=== PATIENT | male | born 1935 | race Caucasian/White ===

== ENCOUNTER → 2018-06-23 | Outpatient (CLI) | payer OTHER ==
[~2018-06-23] VITALS: Ht 172.7 cm; Wt 74.8 kg
[~2018-06-23] MED LIST: ALEVE220 MG PO; ASPIR 8181 MG PO; BLEPH-105 ML OPHTHALMIC; LIPITOR 20 MG T20 M1 PO; LISINOPRIL10 MG PO; NIACIN50 MG; NORCO 5-325 TA1 EACH PO; NORVASC5 MG PO; TOPROL XL25 MG PO; XARELTO20 MG PO
[2018-06-23 07:31] VITALS: BP 135/70
[2018-06-23 07:57] LABS: HEMATOCRIT 35.1 % (42.0-52.0); HEMOGLOBIN 12.2 gm/dL (14.0-18.0); MCH 32.5 pg (26.0-34.0); MCHC 34.6 g/dL (28.0-37.0); RBC 3.74 mil/uL (4.50-6.00); RDW 14.4 % (10.5-14.5); WBC 5.5 thou/uL (4.0-11.0)
[2018-06-23 08:11] LABS: CALCIUM 8.5 mg/dL (8.5-10.1); POTASSIUM 4.8 mmol/L (3.5-5.1)
[2018-06-23 08:13] LABS: APTT 34.2 Seconds (24.5-32.8); INR 1.2; PROTIME 12.3 Seconds (9.3-11.4)
[2018-06-23 08:17] LABS: ALBUMIN 3.4 g/dL (3.4-5.0); TOTAL BILIRUBIN 0.5 mg/dL (<0.1-1.0); TOTAL PROTEIN 6.4 g/dL (6.4-8.2)
--- NOTE | 2018-06-23 11:31 | EKG ---
[address] [place] [address] ELECTROCARDIOGRAM REPORT Name: LORNA TREJO Room #: REG [facility]#: [id number] ������������������ Admission: 06/23/18 ������������������ Attend Phys: Derrick Don MD Discharge: ������������������ Date of : 31 Report #: [id number] ����������������������������������������������������������������� [id number] THIS REPORT FOR: //name// [facility] Test Date: 2018-06-23 Test Time: 09:27:33 Pat Name: LORNA TREJO Department: Room: Gender: Blow Torch Operator: Gildardo GOODWIN : 1935 Requested By: Derrick Don Order Number: [id number] MD: Genaro Teixeira Measurements Intervals [place] Rate: 45 P: 48 MD: 166 QRS: -37 QRSD: 98 T: 172 QT: 466 QTc: 404 Interpretive Statements Sinus bradycardia Atrial premature complex Left axis deviation Low voltage limb leads Nonspecific ST/T waveabnormalities Compared to ECG 05/11/2004 12:16:39 Atrial premature complex(es) now present Electronically Signed On 06-23-2018 11:31:42 NON DESTRUCTIVE EVALUATION SPECIALIST by Genaro Teixeira [email or web address] ��������������������������������������������� <ELECTRONICALLY SIGNED> ���������������������������������������� By: Genaro Teixeira MD ��������������������������������������������� 06/23/18 1131 0927 0927 Genaro Teixeira MD /EPI
== END | disposition home or self-care (01) ==
LOC: CATH 06:47
PROVIDERS: Internal Medicine Cardiovascular Disease
DX: I48.91 Unspecified atrial fibrillation (principal); I10 Essential (primary) hypertension; E78.00 Pure hypercholesterolemia, unspecified; M19.90 Unspecified osteoarthritis, unspecified site; K21.9 Gastro-esophageal reflux disease without esophagitis; E78.5 Hyperlipidemia, unspecified; Z95.1 Presence of aortocoronary bypass graft; Z87.891 Personal history of nicotine dependence; Z98.890 Other specified postprocedural states; Z79.899 Other long term (current) drug therapy; Z79.82 Long term (current) use of aspirin

== ENCOUNTER 2018-12-14 09:41 | Observation (INO) | payer OTHER ==
[~2018-12-14] VITALS: Ht 172.7 cm; Wt 73.5 kg
--- NOTE | ~2018-12-14 | P ---
[facility] [address] PROCEDURE REPORT Name: LORNA TREJO Room #: [facility] M..#: [id number] Admission: 12/14/18 Attend Phys: Derrick Don MD Discharge: Date of : 31 Report #: [id number] THIS REPORT FOR: //name// CC: Derrick Lamb DATE OF SERVICE: 12/14/2018 PROCEDURE: Pacemaker implantation. PREOPERATIVE DIAGNOSIS: Sick sinus syndrome. POSTOPERATIVE DIAGNOSIS: Sick sinus syndrome. HISTORY: The patient is an 83-year-old with history of sick sinus syndrome, here for pacemaker implantation. ANESTHESIA: The patient underwent MAC anesthesia with no anesthesia related complications. DESCRIPTION OF PROCEDURE: The patient underwent informed consent. We discussed the details of the procedure including the risks, which include but not limited to bleeding, infection, vascular damage, cardiac perforation and pneumothorax. He understood these risks and is willing to proceed. The patient was brought to the EP laboratory in a fasting and unsedated state, prepped and draped in sterile fashion, received IV antibiotics. He underwent a venogram showing patency of left axillary vein. Next, I injected lidocaine below the level of clavicle. Incision was made, pocket was created over the prepectoral fascia and access was obtained twice to left axillary vein using the extrathoracic approach. Sheaths were positioned using the modified Seldinger technique. Leads were positioned into the right ventricular apex and right atrial appendage both with adequate pacing and sensing thresholds and sutured to the prepectoral fascia using Ethibond. The pacemaker was connected and found to be functioning normally, placed in the pocket. Pocket was irrigated and the pocket was closed in two layers, surgical glue was placed to the outer skin layer. The patient awoke neurologically and hemodynamically intact. No complications and no significant bleeding. The implanted pacemaker was a [employer] model #2272, serial #[id number]. The atrial lead was a [employer], model #2088TC 52 cm, serial #[id number]. RV lead was [employer] model #2088TC, 58 cm, serial #[id number]. The atrial lead demonstrated a P-wave of 4.2 millivolts, pacing impedance 490 ohms, pacing threshold 0.75 volts at 0.4 milliseconds. RV lead demonstrated R-wave of 9.4 millivolts, pacing impedance 630 ohms, pacing threshold 0.75 volts at 0.4 milliseconds. The device was programmed to DDDR 60-130 mode. [facility] [address] [place] [address] PROCEDURE REPORT Name: LORNA TREJO Room #: [facility] M.R.#: [id number] Admission: 12/14/18 Attend Phys: Derrick Don MD Discharge: Date of : 33 Report #: [id number] CONCLUSIONS: 1. Successful dual-chamber pacemaker implantation. 2. Satisfactory atrial and ventricular pacing and sensing thresholds. By: 1328 2303 Derrick Don MD /nt
[2018-12-14 10:31] VITALS: BP 155/73
[2018-12-14 10:44] LABS: BASOPHILS 0.5 % (0.0-2.0); EOSINOPHILS 0.7 % (0.0-3.0); HEMATOCRIT 37.7 % (42.0-52.0); HEMOGLOBIN 12.8 gm/dL (14.0-18.0); LYMPHOCYTES 24.8 % (24.0-44.0); MCH 31.9 pg (26.0-34.0); MCV 93.9 fL (80.0-100.0); MONOCYTES 5.6 % (1.0-8.0); PLATELET COUNT 248 thou/uL (150-400); POLYS 68.4 % (36.0-66.0); RBC 4.02 mil/uL (4.50-6.00); RDW 13.8 % (10.5-14.5); WBC 7.3 thou/uL (4.0-11.0)
[2018-12-14 10:56] LABS: CALCIUM 9.2 mg/dL (8.5-10.1); POTASSIUM 3.9 mmol/L (3.5-5.1)
[2018-12-14 11:03] LABS: ALBUMIN 4.1 g/dL (3.4-5.0); TOTAL BILIRUBIN 0.8 mg/dL (<0.1-1.0); TOTAL PROTEIN 7.7 g/dL (6.4-8.2)
[2018-12-14 11:06] LABS: PROTIME 10.7 Seconds (9.3-11.4)
[2018-12-14 11:17] LABS: APTT 31.2 Seconds (24.5-32.8)
--- NOTE | 2018-12-14 15:37 | NUR ---
PT ORIENTED TO ROOMAND UNIT. TELE APPLIED AND PT SAFETY LETTER SIGNED. BED LOW AND LOCKED, SIDE RAILS X3, CALL LIGHT IN REACH. WILL CONTINUE TO ASSESS.
[2018-12-14 20:00] VITALS: BP 115/65
[2018-12-15] VITALS: BP 120/72
[2018-12-15 04:00] VITALS: BP 116/65
--- NOTE | 2018-12-15 05:31 | NUR ---
ASSUMED PT CARE AT 1900 WITH NO SIGN OF DISTRESS NOTED IN PT. PT IS ALERT AND ORIENTED. FAMILY AT BEDSIDE. ASSESSMENT CHARTED AND COMPLETED. PACEMAKER SITE IS INTACT INCLUDING ARM IMMOBILIZER. SCHEDULED MEDS ADMINISTERED TO PT. DENIES ANY PAIN. FALL PRECAUTIONS IN PLACE. CONTINUE TO MONITOR PT.
[2018-12-15 08:00] VITALS: BP 122/65
[2018-12-15] MEDS ORDERED: LOPRESSOR25 PO (08:42)
[2018-12-15 09:51] VITALS: BP 122/65
--- NOTE | 2018-12-15 10:00 | NUR ---
met with patient who is A/Ox4. She admits with PNA. Prev on oxygen but when entered room patient on room air. She lives at home with spouse who has had a recent stroke. Patients spouse with stoke approx 3 weeks ago. It has affected his vision. He has been working with home health therapy with a cane. All needs on one level in home. reports walker if needed at home. She reports if home health for her needed she prefers the one coming to the home for spouse. He was at [facility] and reports its not [facility] HH but a really good agency. She plans to find out today if referral needed for HH care. Casemgt following.
--- NOTE | 2018-12-15 10:12 | NUR ---
DISCHARGING TO HOME. CXR, INTERROGATION COMPLETED. HE IS VERY ANXIOUS FOR DISCHARGE. DISCHARGE INSTRUCTIONS GIVEN.
== END 2018-12-15 10:26 | disposition home or self-care (01) ==
LOC: CATH 09:41 → 2N 15:10 → ENTRNSPT 12-15 10:14 → EDTRNSPTSTS 12-15 10:19 → 2N 12-15 10:26
PROVIDERS: ADMIT Internal Medicine Cardiovascular Disease
DX: I49.5 Sick sinus syndrome (principal); I48.0 Paroxysmal atrial fibrillation; R55 Syncope and collapse; I49.8 Other specified cardiac arrhythmias; I25.10 Atherosclerotic heart disease of native coronary artery without angina pectoris; I10 Essential (primary) hypertension; E78.5 Hyperlipidemia, unspecified; Z79.899 Other long term (current) drug therapy
CPT/HCPCS: 62110; 62900; 70005

== ENCOUNTER → 2019-09-16 | Outpatient (CLI) | payer OTHER ==
[~2019-09-16] MED LIST changes: +LOPRESSOR25 PO
== END ==
LOC: SJCVC 16:35
PROVIDERS: ATTEND Internal Medicine Infectious Disease
DX: Z45.018 Encounter for adjustment and management of other part of cardiac pacemaker (principal); R94.31 Abnormal electrocardiogram [ECG] [EKG]; I48.0 Paroxysmal atrial fibrillation; R00.1 Bradycardia, unspecified; I35.0 Nonrheumatic aortic (valve) stenosis; I25.810 Atherosclerosis of coronary artery bypass graft(s) without angina pectoris; I10 Essential (primary) hypertension; E78.5 Hyperlipidemia, unspecified; M19.90 Unspecified osteoarthritis, unspecified site; Z79.01 Long term (current) use of anticoagulants; Z79.899 Other long term (current) drug therapy; Z82.49 Family history of ischemic heart disease and other diseases of the circulatory system; Z95.1 Presence of aortocoronary bypass graft; Z87.891 Personal history of nicotine dependence

== ENCOUNTER → 2019-09-30 | Outpatient (CLI) | payer OTHER | LOC: SJCVCIMAG 09:48 | PROVIDERS: ATTEND Internal Medicine Cardiovascular Disease | DX: R06.09 Other forms of dyspnea (principal); I48.0 Paroxysmal atrial fibrillation; I25.10 Atherosclerotic heart disease of native coronary artery without angina pectoris; E78.5 Hyperlipidemia, unspecified; Z95.0 Presence of cardiac pacemaker; Z87.891 Personal history of nicotine dependence; Z79.899 Other long term (current) drug therapy; Z95.1 Presence of aortocoronary bypass graft ==

== ENCOUNTER → 2020-03-21 | Outpatient (CLI) | payer OTHER | LOC: SJCVC 13:01 | PROVIDERS: ATTEND Internal Medicine Cardiovascular Disease | DX: R94.31 Abnormal electrocardiogram [ECG] [EKG] (principal); I49.49 Other premature depolarization; I73.9 Peripheral vascular disease, unspecified; I48.0 Paroxysmal atrial fibrillation; E78.5 Hyperlipidemia, unspecified; I10 Essential (primary) hypertension; I35.0 Nonrheumatic aortic (valve) stenosis; I25.10 Atherosclerotic heart disease of native coronary artery without angina pectoris; E78.00 Pure hypercholesterolemia, unspecified; Z95.1 Presence of aortocoronary bypass graft; Z79.82 Long term (current) use of aspirin; Z79.899 Other long term (current) drug therapy; Z87.891 Personal history of nicotine dependence ==

== ENCOUNTER → 2020-07-17 | Outpatient (CLI) | payer OTHER ==
[2020-07-17 12:23] LABS: ABSOLUTE NEUTROPHILS 6.8 thou/uL (1.4-8.2); BASOPHILS 0.4 % (0.0-2.0); EOSINOPHILS 0.7 % (0.0-3.0); HEMATOCRIT 35.8 % (42.0-52.0); HEMOGLOBIN 12.1 gm/dL (14.0-18.0); MCH 32.4 pg (26.0-34.0); MCHC 33.7 g/dL (28.0-37.0); MCV 96.1 fL (80.0-100.0); MONOCYTES 4.4 % (1.0-8.0); PLATELET COUNT 236 thou/uL (150-400); POLYS 76.5 % (36.0-66.0); RBC 3.72 mil/uL (4.50-6.00); RDW 13.6 % (10.5-14.5); WBC 8.9 thou/uL (4.0-11.0)
[2020-07-17 12:32] LABS: ALBUMIN 4.1 g/dL (3.4-5.0); CALCIUM 9.3 mg/dL (8.5-10.1); CREATININE 1.1 mg/dL (0.7-1.3); POTASSIUM 4.7 mmol/L (3.5-5.1); TOTAL BILIRUBIN 0.6 mg/dL (0.2-1.0); TOTAL PROTEIN 7.7 g/dL (6.4-8.2)
--- NOTE | 2020-07-17 15:02 | EKG ---
[address] [address] ELECTROCARDIOGRAM REPORT Name: CURTIS TREJOD Kenneth Room #: REG [facility]#: [id number] Admission: 07/17/20 Attend Phys: Adriel Gonzalez MD Discharge: Date of : 33 Report #: [id number] [facility] Test Date: 2020-07-17 Test Time: 12:14:18 Pat Name: LORNA TREJO Department: Room: Gender: M Ceo: CHRISTIANO : 1935 Requested By: Adriel Gonzalez Order Number: [id number] MD: Derrick Don Measurements Intervals [place] Rate: 62 P: MO: 147 QRS: -31 QRSD: 104 T: 93 QT: 407 QTc: 414 Interpretive Statements Atrial-paced complexes Left axis deviation Low voltage, extremity leads Compared to ECG 06/23/2018 09:27:33 Sinus bradycardia no longer present Atrial premature complex(es) no longer present Electronically Signed On 07-17-2020 15:02:11 CDT by Derrick Don [email or web address] <ELECTRONICALLY SIGNED> By: Derrick Don MD 07/17/20 1502 1214 1214 Derrick Don MD /LILY
== END ==
LOC: CV 11:05
PROVIDERS: ATTEND Otolaryngology Plastic Surgery within the Head & Neck
DX: C44.329 Squamous cell carcinoma of skin of other parts of face (principal); I44.4 Left anterior fascicular block; R00.0 Tachycardia, unspecified

== ENCOUNTER → 2020-07-20 | Outpatient (CLI) | payer OTHER | LOC: SJCVCIMAG 12:41 | PROVIDERS: ATTEND Internal Medicine | DX: Z01.818 Encounter for other preprocedural examination (principal); I08.8 Other rheumatic multiple valve diseases; R94.31 Abnormal electrocardiogram [ECG] [EKG]; I25.10 Atherosclerotic heart disease of native coronary artery without angina pectoris; E78.2 Mixed hyperlipidemia; I10 Essential (primary) hypertension; M19.90 Unspecified osteoarthritis, unspecified site; Z95.1 Presence of aortocoronary bypass graft; Z79.899 Other long term (current) drug therapy; Z86.12 Personal history of poliomyelitis; Z95.0 Presence of cardiac pacemaker; Z87.891 Personal history of nicotine dependence; Z72.89 Other problems related to lifestyle ==

== ENCOUNTER → 2020-07-26 | Outpatient (CLI) | payer OTHER | LOC: SJCVC 11:29 | PROVIDERS: ATTEND Internal Medicine Cardiovascular Disease | DX: R94.31 Abnormal electrocardiogram [ECG] [EKG] (principal); R06.00 Dyspnea, unspecified; I25.10 Atherosclerotic heart disease of native coronary artery without angina pectoris; I48.0 Paroxysmal atrial fibrillation; I35.0 Nonrheumatic aortic (valve) stenosis; E78.5 Hyperlipidemia, unspecified; I10 Essential (primary) hypertension; M19.90 Unspecified osteoarthritis, unspecified site; Z95.0 Presence of cardiac pacemaker; Z95.1 Presence of aortocoronary bypass graft; Z79.899 Other long term (current) drug therapy; Z87.891 Personal history of nicotine dependence; Z82.49 Family history of ischemic heart disease and other diseases of the circulatory system ==

== ENCOUNTER → 2020-07-31 | Outpatient (CLI) | payer OTHER ==
[~2020-07-31] VITALS: Ht 167.6 cm; Wt 77.1 kg
[~2020-07-31] MED LIST changes: +BENICAR20 MG PO
[2020-07-31 08:35] VITALS: BP 166/73
--- NOTE | 2020-07-31 13:11 | CATHLAB ---
[facility] [address] [place] [address] INVASIVE PROCEDURE REPORT Name: LORNA TREJO Room #: REG [facility].#: [id number] Admission: 07/31/20 Attend Phys: Lb Simmons MD Discharge: Date of : 33 Report #: [id number] THIS REPORT FOR: cc: Dimas Lamb MD, Steven A. MD Park, Jin S. MD ~ APPROVED REPORT Study performed: 07/31/2020 08:51:52 Patient Details Patient Status: Out-Patient Room #: The patient is a 85 year-old male Event Personnel Lb Simmons Intelligence Officer, Rizwana Wright RTR, Daryl Barragan Sherra RTR Monitor, Mayela Montenegro RN methane gas collection system operator Performed Art Access - R femoral artery* Left Heart Cath Coronaries, Bypass Grafts [id number] LHCCORCABG 80511 Initial Mod Sed Same Phys/QHP Gr5y 817107 72895 Mod Sed Same Phys/QHP Ea 064444 Hemostasis with Manual pressure Indication Dyspnea, Positive stress test, Pre-op clearance Risk Factors Hypercholesterolemia, Coronary Artery DiseaseHypertension Previous Procedures/Diagnoses Previous CABG Procedure Narrative The Right Groin^ was infiltrated with 1% Lidocaine subcutaneous anesthesia. A PINNACLE 4FR Sheath #[id number] sheath was inserted into the RFA^. Coronary angiography was performed using coronary diagnostic catheters. The right coronary system was accessed and visualized with a JR4 catheter. The left coronary system was accessed and visualized with a JL5 catheter. The left ventricle was accessed and visualized with a JR4 catheter. Hemostasis was obtained with manual pressure following sheath removal without any complications. The patient tolerated the procedure well and there were no [facility] [address] [place] [address] INVASIVE PROCEDURE REPORT Name: LORNA TREJO Room #: REG [facility]#: [id number] Admission: 07/31/20 Attend Phys: Lb Simmons MD Discharge: Date of : 33 Report #: [id number] complications associated with the procedure. There was no hematoma. Intraoperative Conscious Sedation Sedation start time: 9:27 Case end Time: 10:23 Fentanyl 25 mcg Versed 1 mg Fluoro Time: 12.90 minutes Dose: DAP 7318.00 cGycm2 1651 mGy Contrast Type and Amount: Omnipaque 75 ml Coronary Angiography The patient's coronary anatomy is right dominant. [place] Artery Percent Stenosis Left Main: % Prox LAD: 100 % Mid/Distal LAD: % Circumflex: 100 % RCA: 100 % Ramus: % Diagnostic Cath LAD There is a patent SHEPPARD graft with an end-to-side anastomosis to the mid LAD. After the anastomosis, there are no flow-limiting lesions in the wilton LAD. Diagonal 1 There is a patent sequential SVG to the first diagonal artery and OM artery. OM1 This is filled by the sequential SVG. After the anastomosis, there is a severe occlusion in the mid segment of the wilton OM vessel, 70%. Right Coronary There is a patent SVG with an end-to-side anastomosis to the distal RCA. R PDA There is a severe occlusion in the proximal segment of the PDA, 70%. RPLV There is moderate disease in the proximal segment of this vessel. Left Ventriculography Left Ventriculography was not performed. Ejection Fraction was >55% based off patient's Echocardiogram. An LVEDP was measured and there is no gradient across the outflow tract. Hemodynamics The aortic pressure is 130/60 mmHg with a mean of 93 mmHg. The left ventricular pressure is 133/2 mmHg with a mean of mmHg. The left ventricular end diastolic pressure is 5 mmHg. Conclusion [facility] [address] [place] [address] INVASIVE PROCEDURE REPORT Name: LORNA TREJO Room #: REG [facility]#: [id number] Admission: 07/31/20 Attend Phys: Lb Simmons MD Discharge: Date of : 33 Report #: [id number] 1. There is a patent SHEPPARD graft to the LAD. 2. There is a patent sequential SVG to a Diagonal artery and OM artery. 3. There is a patent SVG to the distal RCA. 4. There are severe, discrete lesions in the wilton vessels: OM and PDA. Recommend medical therapy for now. 5. Normal LV systolic function by echocardiogram. 6. Recommend guideline directed medical therapy and risk factor management. <ELECTRONICALLY SIGNED> By: Lb Simmons MD 07/31/201310 10 10 Lb Simmons MD /INF
== END | disposition home or self-care (01) ==
LOC: CATH 07:54
PROVIDERS: ATTEND Internal Medicine Cardiovascular Disease
DX: R94.39 Abnormal result of other cardiovascular function study (principal); I25.10 Atherosclerotic heart disease of native coronary artery without angina pectoris; R06.00 Dyspnea, unspecified; I10 Essential (primary) hypertension; E78.00 Pure hypercholesterolemia, unspecified; I48.91 Unspecified atrial fibrillation; I48.92 Unspecified atrial flutter; M19.90 Unspecified osteoarthritis, unspecified site; Z98.890 Other specified postprocedural states; Z79.899 Other long term (current) drug therapy; Z82.49 Family history of ischemic heart disease and other diseases of the circulatory system; Z95.1 Presence of aortocoronary bypass graft; Z87.891 Personal history of nicotine dependence

== ENCOUNTER → 2020-08-07 | Outpatient (CLI) | payer OTHER ==
[~2020-08-07] MED LIST changes: +ADULT LOW DOSE81 MG PO; -ASPIR 8181 MG PO; +HYDROCODON-ACE1 EAC7 PO; +KEFLEX250 MG PO; +ONDANSETRON4 MG/2 M1 PO
== END ==
LOC: LAB 13:40
PROVIDERS: ATTEND Otolaryngology Plastic Surgery within the Head & Neck
DX: Z01.812 Encounter for preprocedural laboratory examination (principal); Z20.822 Contact with and (suspected) exposure to COVID-19

== ENCOUNTER 2020-08-11 09:13 | Day surgery (SDC) | payer OTHER ==
[~2020-08-11] VITALS: Ht 167.6 cm; Wt 74.8 kg
[~2020-08-11 09:13] MED LIST changes: -HYDROCODON-ACE1 EAC7 PO; -KEFLEX250 MG PO; -ONDANSETRON4 MG/2 M1 PO
[2020-08-11 11:21] VITALS: BP 141/77
[2020-08-11] MEDS ORDERED: HYDROCODON-ACE1 EAC7 PO (15:49)
[2020-08-11] MEDS ORDERED: ONDANSETRON4 MG/2 M1 PO (15:49)
[2020-08-11] MEDS ORDERED: KEFLEX250 MG PO (15:50)
[2020-08-11 19:50] VITALS: BP 130/71
[2020-08-11 20:10] VITALS: BP 133/67
[2020-08-11 21:30] VITALS: BP 136/71
[2020-08-11 23:01] VITALS: BP 123/67
--- NOTE | 2020-08-12 04:44 | NUR ---
PT WAS ADMITTED TO THE UNIT FROM PACU IN A STABLE CONDITION.ADMISSION HX,EDUCATION AND ASSESSMENT COMPLETED WITH THE HELP OF HIS DPOA LIZANDRO SANCHEZ.KATHERINE TO HIS Regine HANSENK WITH SEROSANGUINEOUS DRINAGE,REINFORCED X1 SO FAR.PT STARTED ON CLEAR LIQUIDS,BRIAN ICE CHIPS AND WATER.PT SLEEPING OFF AND ON.PT DENIED PAIN SO FAR.PT ABLE TO MAKE HIS NEEDS KNOWN.CALL LIGHT WITHIN REACH.
[2020-08-12 05:38] LABS: HEMATOCRIT 29.1 % (42.0-52.0); HEMOGLOBIN 9.7 gm/dL (14.0-18.0); MCH 32.5 pg (26.0-34.0); MCHC 33.4 g/dL (28.0-37.0); MCV 97.2 fL (80.0-100.0); RBC 2.99 mil/uL (4.50-6.00); RDW 13.1 % (10.5-14.5); WBC 12.5 thou/uL (4.0-11.0)
[2020-08-12 05:58] VITALS: BP 130/75
[2020-08-12 06:10] LABS: CALCIUM 7.6 mg/dL (8.5-10.1); POTASSIUM 4.4 mmol/L (3.5-5.1)
[2020-08-12 07:50] VITALS: BP 144/55; BP 163/73
[2020-08-12 08:07] VITALS: BP 130/75
--- NOTE | 2020-08-12 11:07 | NUR ---
Assumed pt care this am, vs stable eli in the left cheek up to the neck with a natalie drain. No pain was noted, VS stable. DPOA at the bed side, DC intructions given, perescriptions given to the DPOA post op. IV removed. Pt is now DC.
--- NOTE | 2020-08-18 16:21 | O ---
[facility] [place] [address] OPERATIVE REPORT Name: LORNA TREJO Room #: [facility] M..#: [id number] Admission: 08/11/20 Attend Phys: Adriel Gonzalez MD Discharge: 08/12/20 Date of : 33 Report #: [id number] THIS REPORT FOR: cc: Yajaira Agudelo Shanna R. DO Walton,Adriel Sharpe MD ~ DATE OF SERVICE: 08/11/2020 PREOPERATIVE DIAGNOSIS: Recurrent amelanotic melanoma, left cheek, 2.5 cm. POSTOPERATIVE DIAGNOSIS: Recurrent amelanotic melanoma, left cheek 2.5 cm. OPERATIONS PERFORMED: 1. Wide local excision amelanotic melanoma; left cheek, 5 x 5 cm. 2. Cervicofacial myocutaneous flap reconstruction, left cheek. 3. [place] node biopsy. 4. Nerve integrity monitoring x 3 hours. ANESTHESIA: General endotracheal. SURGEON: Adriel Gonzalez MD INDICATIONS: The patient is an 85-year-old gentleman referred by his managed care liaison, Dr. Cedeño, after recent biopsy of the lesion on his left cheek showed amelanotic melanoma. The patient has a history of a previous Mohs surgery by Dr. Kate Corral on 10/15/2019, sometime later this winter this lesion began to grow again. Biopsy was done on 07/03/2020 and the patient was referred by Dr. Cedeño. This was a Breslow 1.5 mm at least as the deep margin was positive and a Yoandy level 4 at least. Mitotic rate was 5/mm sq. Ulceration was present. No lymphovascular invasion was present. No perineural invasion was identified, but margins were positive from the biopsy. CT scan did not show any metastatic amrita disease or abnormal mass in the neck. PET scan also did not show any metastatic disease or abnormal lymph nodes in the neck. Recommendations were made for wide local excision with reconstruction by flaps and grafts as needed and sentinel node biopsy. DESCRIPTION OF PROCEDURE: The patient was admitted to the hospital. He was transferred to the nuclear medicine suite and injected with technetium. I received a call from the treatment technician that they had poor uptake on their scans. He was transferred back to the preoperative area and then the patient was transferred to the operating room. He was placed supine on the operating table. After adequate general anesthesia was achieved via endotracheal intubation, he was turned 180 degrees with the left face up. The patient had a magnet placed over his pacemaker on that same side and draped sterilely. The photos were taken preoperatively of the lesion and then the patient was prepped and draped [address] [address] OPERATIVE REPORT Name: LORNA TREJO Room #: DEP [facility]..#: [id number] Admission: 08/11/20 Attend Phys: Adriel Gonzalez MD Discharge: 08/12/20 Date of : 33 Report #: [id number] in a sterile fashion. Decision was then made 12 mm margins were taken around the gross edge of the tumor, which measured 2.5 cm. The total defect measured a little over 5 x 5 cm. The wide undermining was then undertaken. The lesion was then examined and felt to be amenable to a cervicofacial rotation flap from the neck, which was then designed. The gamma probe had preoperatively tried to map the lymph nodes which showed very poor uptake, but were mask because of the size of the defect. At this point, injection was made in the skin of 1% Xylocaine with 1:100,000 epinephrine. The lesion was then excised with separate instruments, the total defect 5 x 5 cm in a circular fashion. The superior margin was marked at 12 o'clock with a 2-0 silk. This was delivered off the field as a specimen in formalin. Gloves and instruments were then changed and then wide undermining was undertaken. It was elected to proceed rotation flap reconstruction. This was then designed and carried down into the neck. Incisions were then made to open this flap up after wide undermining. At this point, the gamma probe was reintroduced to try to map cervical lymph nodes. By this time, there was very little uptake left in the technetium, but it did seem to identify nodes in level 2. Dissection was then made in the facial node region. Using a Doppler, the facial artery was identified and facial vein was identified. There were no facial nodes identified. Attention was then turned posteriorly. Mapping over the parotid also failed to reveal any suspicious nodes. Mapping over the high jugulodigastric area did have some very weak uptake. Dissection was then made down to the anterior border of the sternocleidomastoid muscle was made. This was then dissected down to the jugular vein and then dissection was made in this level 2 area lateral to the jugular vein and the retromandibular vein. Lymph nodes were identified at the lower end of the parotid area. These were harvested as sentinel nodes. There was not enough uptake to even do a 10-second count by this time. The nodes were then removed and delivered off in formalin. Examination was made up and down the jugular vein. No other suspicious nodes were found. This soft tissue was then closed with interrupted 3-0 Vicryl. The cervicofacial myocutaneous flap was then rotated into the defect and began closure with interrupted 4-0 Vicryl with sutures rotating the flap into the defect. This was then closed completely and inset into the defect as a custom fit with alteration of the flap as needed. Prior to complete closure, a 10-Upper Sorbian Misha drain was placed through a separate stab incision, curled into the wound and connected to bulb suction postauricular. The drain was sutured in place with 2-0 silk. The remaining portion of the incision down into the neck was then closed with interrupted 4-0 Vicryl deep dermal sutures. Complete skin was then closed with interrupted 5-0 nylon simple interrupted sutures. Mastisol and Steri-Strips were then applied followed by an OpSite for dressing. The patient's facial nerve marginal mandibular branch had been dissected during the procedure and found to be intact. At this point, the patient was returned to anesthesia, awake without difficulty, returned to recovery in good condition. Sponge and needle counts were correct. There were no complications. Blood loss was about 40 mL. The patient will be watched overnight for monitoring due to his advanced [address] [address] OPERATIVE REPORT Name: LORNA TREJO Room #: DEP [facility]#: [id number] Admission: 08/11/20 Attend Phys: Adriel Gonzaelz MD Discharge: 08/12/20 Date of : 33 Report #: [id number] age with plans for discharge in the morning. Written and verbal discharge instructions and emergency precautions have been given to his family. Discharge medications include Keflex 500 mg q.i.d. for 10 days, hydrocodone and acetaminophen 7.5/325 one to two q.4-6 hours p.r.n., ondansetron ODT tablet 4 mg 1 p.o. q.4-6 hours p.r.n. He is instructed on light activity, soft diet, water precautions for the incision. He will follow up in 1 week for removal of sutures. The patient understands and his family understands that if no margins are positive, further treatment may be needed and that frozen sections cannot be done. <ELECTRONICALLY SIGNED> By: Adriel Gonzalez MD 08/18/20 1621 1525 1607 Adriel Gonzalez MD /nt
--- NOTE | 2020-08-18 16:22 | O ---
[facility] [place] [address] OPERATIVE REPORT Name: LORNA TREJO Room #: DEP [facility] M..#: [id number] Admission: 08/11/20 Attend Phys: Adriel Gonzalez MD Discharge: 08/12/20 Date of : 33 Report #: [id number] THIS REPORT FOR: cc: Yajaira Agudelo Shanna R. DO Walton, Mark S. MD ~ DATE OF SERVICE: 08/11/2020 SURGEON: Adriel Gonzalez MD PREOPERATIVE DIAGNOSIS: Postoperative hematoma. POSTOPERATIVE DIAGNOSIS: Postoperative hematoma. OPERATION PERFORMED: Evacuation of postoperative hematoma. HISTORY: The patient is an 85-year-old gentleman who underwent a large 5 x 5 cm excision melanoma, left cheek with cervicofacial rotation flap and extensive undermining. INDICATIONS: The patient has been kept on aspirin by his help desk specialist and developed a postoperative hematoma in the recovery room approximately 45 minutes after his procedure. I stayed there, watched this, this seemed to be expanding and therefore elected to bring him back to the operating room for control. DESCRIPTION OF PROCEDURE: The patient was brought back to the operating room, general anesthesia was achieved again with endotracheal intubation and he was turned 180 degrees. He was prepped with Betadine and then the sutures were removed and the cervicofacial rotation flap. This was completely undone so that I could reevaluate. There was a clot present that was evacuated and cleared. There was no specific point of bleeding, but generalized oozing throughout consistent with use of aspirin. Over an hour was spent sequentially going through each small bleeding area with bipolar cauterization, again clip ligature if this was felt necessary. Irrigation was done again at this point, thrombin was sprayed onto the raw bed of the surgical area. This was followed by powdered Eusebio and then FloSeal with thrombin. Eventually control was achieved, so that the flap could be re-inset and then closed again with interrupted 4-0 Vicryl deep dermal sutures and 5-0 nylon on skin. A Misha drain had been used initially, this was removed and not replaced and separately a 5/8th inch [place] drain was placed. It was threaded into the wound before closure and it was sutured in place in the inferior neck with 2-0 silk. Bulky dressings were then applied. The patient was then returned to anesthesia, awake without difficulty, returned to recovery in good condition. Sponge and needle [address] [address] OPERATIVE REPORT Name: LORNA TREJO Room #: DEP [facility]#: [id number] Admission: 08/11/20 Attend Phys: Adriel Gonzalez MD Discharge: 08/12/20 Date of : 33 Report #: [id number] counts were correct. There were no complications. Blood loss was about 150 mL with a clot. He will be watched again overnight for monitoring. <ELECTRONICALLY SIGNED> By: Adriel Gonzalez MD 08/18/20 1622 1814 1847 Adriel Gonzalez MD /howard
--- NOTE | 2020-08-24 16:21 | PATH ---
[facility] [address] [place] [address] PATHOLOGY RPT PROCEDURE Name: LORNA TREJO Room #: DEP [facility] M.R.#: [id number] Admission: 08/11/20 Date of : 31 Discharge: 08/12/20 Report #: [id number] Path Case #: [id number] LCA Accession Number: [id number] . 01 Material submitted: . PART A: cheek - LEFT CHEEK MELANOMA. Modifiers: left PART B: cheek - EXTRA MARGIN AT 7:00 LEFT CHEEK MELANOMA. Modifiers: left, 7:00 PART C: lymph node - SENTINEL LYMPH NODE LEVEL 2 . 01 Clinical history: . EXCISION FACIAL SKIN CANCER/MELANOMA BIOPSY SENTINEL NODE MALIGNANT MELANOMA OF SKIN OF CHEEK . 02 Diagnosis: A. Skin, left cheek, oriented excision: - MALIGNANT MELANOMA, AMELANOTIC, POORLY DIFFERENTIATED, SPINDLED (YOANDY'S LEVEL V; BRESLOW'S THICKNESS 8.0 MM), ULCERATED WITH PERINEURAL INVASION; MARGINS FREE OF INVOLVEMENT (SEE MELANOMA SYNOPTIC CANCER STAGING REPORT). - One reactive lymph node identified within adipose tissue; negative for malignancy (0/1). (SAS:daron; 08/21/20) . B. Skin, extra margin at 7:00 left cheek melanoma, re-excision: - Negative for malignancy. . C. Lymph nodes (2), sentinel lymph node level 2, dissection: - Reactive lymph nodes, no definitive metastatic malignant melanoma identified (please see comment). . (IUV:patient appointment coordinator; 08/21/2020) . . A. MELANOMA SYNOPTIC CANCER STAGING REPORT . Specimen site: Left cheek Procedure: Excision, oriented Gross neoplasm: Clinical size unknown Histologic type: Malignant melanoma, spindled, poorly differentiated, amelanotic Neoplasm thickness: Yoandy's level V; Breslow's thickness 8.0 mm Ulceration: Present Mitotic index: 7 per mm2 Lymphovascular invasion: Indeterminate (see comment) [facility] [address] [place] [address] PATHOLOGY RPT PROCEDURE Name: LORNA TREJO Room #: DEP [facility] Darrell#: [id number] Admission: 08/11/20 Date of : 31 Discharge: 08/12/20 Report #: [id number] Path Case #: [id number] Perineural invasion: Present Regression: Not identified Microsatellitoses: Not identified Tumor infiltrating lymphocytes: Not identified Additional pathologic findings: Prior biopsy site changes and small lymph node (A6) Margins: Peripheral margins: Uninvolved Distance of melanoma to nearest peripheral margin: 1.40 mm to the black inked 3-6:00 side margin Deep margin: Uninvolved Distance of invasive melanoma to deep margin: Approximately 3-4 mm Pathologic staging: pT4b . (SAS:daron; 08/21/2020) MBR 08/22/2020 1126 Local . 02 Comment: A. History of amelanotic malignant melanoma with Breslow depth of at least 1.5 mm (transected at the deep margin), at least Yoandy's level IV, 5 per square mm mitotic rate with no regression and with ulceration only reactive to S-100 as well as SOX 10 immunohistochemical stains is provided by Dr. Adriel Gonzalez's office (accession number [id number]). Please refer to a separate report for complete details.The current synoptic report includes examination of the current specimen only. . The tumor is intimately associated with a few identifiable lymphovascular spaces suspicious for lymphovascular invasion. . Within this oriented re-excision of specimen A from the "left cheek", there is the presence of an amelanotic spindled, poorly differentiated malignant melanoma with a depth of: Yoandy's level V; Breslow's thickness 8.00 mm. There is overlying ulceration as well as perineural invasion of small nerves. This melanoma is tracking horizontally via perineural invasion and approaches close to the black inked 3-6:00 side margin measuring 1.40 mm from it. A number of immunohistochemical stains were performed, most of which at this laboratory; however, the SOX 10 immunohistochemical stain was a send out. All stains were performed with appropriate positive controls on block A6 with the following results: . p40: Negative within lesional cells Haynes melanoma: Negative within lesional cells P63: Negative within lesional cells S-100: Positive within lesional cells, and also positive within nerves SOX 10: Strongly and diffusely positive within lesional cells . The positive staining with S-100 and SOX 10 is similar to the patient's [facility] [place] [address] PATHOLOGY RPT PROCEDURE Name: LORNA TREJO Room #: [facility].#: [id number] Admission: 08/11/20 Date of : 31 Discharge: 08/12/20 Report #: [id number] Path Case #: [id number] prior biopsy (D-PATH [id number]). . . C. Multiple properly controlled immunohistochemical stains are performed on blocks C1 and C2. . HMB-45 performed on both blocks - nonreactive. MART1 performed on both blocks - nonreactive. S-100 performed on both blocks - no definitive subcapsular aggregates identified. SOX 10 on both blocks - no definitive subcapsular aggregates identified. . Part A of this case is reviewed and prepared by Dr. Melaine Dutton (board-certified dermatopathologist). . (IUV:patient appointment coordinator; 08/21/2020) . . Professional services performed by [facility] at [facility], [address] [place] [address]. Technical services performed by [facility], [address] [place] [address], [address], [place] [address]. . 02 Electronically signed: . Sarah Amaya MD, Pathologist NPI- [id number] . 01 Gross description: . A. Received in formalin labeled "Lorna Trejo, left cheek melanoma stitch murphy 12:00" is an oriented ovoid excision of skin measuring 3.6 x 3.2 x 1.6 cm. There is a suture on one long edge indicating 12:00. The skin surface displays a hunt-white partially healed scar/biopsy site measuring 1.2 x 1.1 cm. The margins are inked as follows: 9:00 to 12:00 is blue, 12:00 to 3:00 is yellow, 3:00 to 6:00 to 9:00 is black. The specimen is sectioned into 10 pieces. The specimen is submitted entirely as follows: A1 9:00 ends, perpendicular sections (5 pieces) A2-A9 middle of specimen submitted sequentially from 9:00 to 3:00 A10 3:00 end, perpendicular sections (6 pieces) . B. Received in formalin labeled "Thomas Trejod, extra margin at 7:00 left cheek melanoma" is a triangular portion of hunt-white skin and underlying tissue measuring 1.2 x 0.8 x 0.8 cm. The true margin is unable to be determined. The specimen is inked black, sectioned into 4 pieces, and submitted in B1. . C. Received in formalin labeled "Lorna Trejo, sentinel lymph node level 2" is a pink-hunt lymph node measuring 1.6 x 0.8 x 0.8 cm. The lymph node is serially sectioned and submitted in cassette C1. Also present within the container is a fragment of pink-hunt possible lymphoid or fibroadipose [facility] [address] [place] [address] PATHOLOGY RPT PROCEDURE Name: LORNA TREJO Room #: DEP [facility] M.R.#: [id number] Admission: 08/11/20 Date of : 31 Discharge: 08/12/20 Report #: [id number] Path Case #: [id number] tissue measuring 0.8 x 0.7 x 0.2 cm, which is submitted without sectioning in C2. ([facility]; 08/12/2020) [facility] 08/12/2020 1100 Local . 02 Pathologist provided ICD-10: C43.39 . 02 CPT . 366308, 250629, 749658, R54448, J66675, A58803 Specimen Comment: A courtesy copy of this report has been sent to [phone] Specimen Comment: [phone], , , Specimen Comment: Report sent to ,DR VAZ,DR CRUZ / DR ALTMAN Specimen Comment: DR MONTAÑO Specimen Comment: A duplicate report has been generated due to demographic updates. Performed at: 01 [facility] [address], [place], [place] [id number] MD Calvin Gardiner MD Phone: [phone] Performed at: [address] [id number] MD Sarah Amaya MD Phone: [phone]
== END 2020-08-12 11:15 | disposition home or self-care (01) ==
LOC: OR 09:13 → TBA 10:00 → OR 10:09 → EDSTATUS 12:08 → NUC 12:14 → OR 13:49 → 4S 19:37 → OR 08-12 11:15
PROVIDERS: ATTEND Otolaryngology Plastic Surgery within the Head & Neck
DX: C43.39 Malignant melanoma of other parts of face (principal); R59.0 Localized enlarged lymph nodes; L76.32 Postprocedural hematoma of skin and subcutaneous tissue following other procedure; I10 Essential (primary) hypertension; E78.00 Pure hypercholesterolemia, unspecified; I48.91 Unspecified atrial fibrillation; I49.5 Sick sinus syndrome; I25.10 Atherosclerotic heart disease of native coronary artery without angina pectoris; M19.90 Unspecified osteoarthritis, unspecified site; K21.9 Gastro-esophageal reflux disease without esophagitis; Z98.890 Other specified postprocedural states; Z79.899 Other long term (current) drug therapy; Z79.01 Long term (current) use of anticoagulants; Z95.1 Presence of aortocoronary bypass graft; Z95.0 Presence of cardiac pacemaker; Z87.891 Personal history of nicotine dependence
CPT/HCPCS: 10102; 50010; 50101; 50386; 50398; 50417; 50455; 51412; 52190; 52220; 52225; 52287; 56524; 56525; 56526; 56527; 56528; 56760; 57006; 62110; 62900; 70005

== ENCOUNTER → 2020-08-18 | Outpatient (CLI) | payer OTHER ==
[~2020-08-18] MED LIST changes: +HYDROCODON-ACE1 EAC7 PO; +KEFLEX250 MG PO; +ONDANSETRON4 MG/2 M1 PO
== END ==
LOC: SJCVC 10:32
DX: R94.31 Abnormal electrocardiogram [ECG] [EKG] (principal); I25.10 Atherosclerotic heart disease of native coronary artery without angina pectoris; I48.0 Paroxysmal atrial fibrillation; I11.9 Hypertensive heart disease without heart failure; E78.5 Hyperlipidemia, unspecified; I49.5 Sick sinus syndrome; I35.0 Nonrheumatic aortic (valve) stenosis; R06.00 Dyspnea, unspecified; R42 Dizziness and giddiness; Z87.891 Personal history of nicotine dependence; Z72.89 Other problems related to lifestyle; Z79.899 Other long term (current) drug therapy

== ENCOUNTER → 2020-11-21 | Outpatient (CLI) | payer OTHER | LOC: SJCVC 13:58 | PROVIDERS: ATTEND Internal Medicine Cardiovascular Disease | DX: R94.31 Abnormal electrocardiogram [ECG] [EKG] (principal); I48.0 Paroxysmal atrial fibrillation; I25.10 Atherosclerotic heart disease of native coronary artery without angina pectoris; I49.5 Sick sinus syndrome; E78.5 Hyperlipidemia, unspecified; I10 Essential (primary) hypertension; R06.00 Dyspnea, unspecified; I35.0 Nonrheumatic aortic (valve) stenosis; R42 Dizziness and giddiness; M19.90 Unspecified osteoarthritis, unspecified site; Z95.0 Presence of cardiac pacemaker; Z95.1 Presence of aortocoronary bypass graft; Z79.82 Long term (current) use of aspirin; Z79.899 Other long term (current) drug therapy; Z87.891 Personal history of nicotine dependence; Z82.49 Family history of ischemic heart disease and other diseases of the circulatory system ==

== ENCOUNTER → 2021-01-25 | Outpatient (CLI) | payer OTHER | LOC: SJCVC 13:33 | PROVIDERS: ATTEND Internal Medicine Cardiovascular Disease | DX: R94.31 Abnormal electrocardiogram [ECG] [EKG] (principal); R06.00 Dyspnea, unspecified; I25.10 Atherosclerotic heart disease of native coronary artery without angina pectoris; I10 Essential (primary) hypertension; I48.0 Paroxysmal atrial fibrillation; R60.9 Edema, unspecified; E78.5 Hyperlipidemia, unspecified; I49.5 Sick sinus syndrome; I35.0 Nonrheumatic aortic (valve) stenosis; Z95.1 Presence of aortocoronary bypass graft; Z79.899 Other long term (current) drug therapy; Z72.89 Other problems related to lifestyle; Z87.891 Personal history of nicotine dependence; Z79.82 Long term (current) use of aspirin ==

== ENCOUNTER → 2021-02-01 | Outpatient (CLI) | payer OTHER | LOC: SJCVC 08:02 | PROVIDERS: ATTEND Internal Medicine Cardiovascular Disease | DX: R60.9 Edema, unspecified (principal) ==

== ENCOUNTER → 2021-02-12 | Outpatient (CLI) | payer OTHER | LOC: SJCVCIMAG 02-02 11:21 | PROVIDERS: ATTEND Internal Medicine Cardiovascular Disease | DX: I08.0 Rheumatic disorders of both mitral and aortic valves (principal); R94.31 Abnormal electrocardiogram [ECG] [EKG]; I48.91 Unspecified atrial fibrillation; R06.00 Dyspnea, unspecified; I25.10 Atherosclerotic heart disease of native coronary artery without angina pectoris; I48.0 Paroxysmal atrial fibrillation; I10 Essential (primary) hypertension; R60.9 Edema, unspecified; Z79.82 Long term (current) use of aspirin; Z79.899 Other long term (current) drug therapy; Z87.891 Personal history of nicotine dependence; Z72.89 Other problems related to lifestyle ==

== ENCOUNTER 2021-02-15 09:28 | Observation (INO) | payer OTHER ==
[~2021-02-15] VITALS: Ht 167.6 cm; Wt 67.6 kg
[2021-02-15 10:23] VITALS: BP 157/79
[2021-02-15] MEDS ORDERED: ENTRESTO 24 MG1 EACH (10:27)
[2021-02-15] MEDS ORDERED: OSTERA TABLET1 EAC1 (10:27)
[2021-02-15] MEDS ORDERED: KLOR-CON M2020 MEQ (10:28)
[2021-02-15] MEDS ORDERED: TOPROL XL50 MG (10:28)
[2021-02-15] MEDS ORDERED: DEMADEX20 MG (10:29)
--- NOTE | 2021-02-15 15:27 | CATHLAB ---
[facility] [address] [address] INVASIVE PROCEDURE REPORT Name: LORNA TREJO Room #: REG TITA ArauzChano#: [id number] Admission: 02/15/21 Attend Phys: Lb Simmons MD Discharge: Date of : 31 Report #: [id number] THIS REPORT FOR: cc: Yajaira Agudelo Shanna R. DO Park, Jin S. MD ~ APPROVED REPORT Study performed: 02/15/2021 11:32:02 Patient Details Patient Status: Out-Patient Room #: The patient is a 86 year-old male Event Personnel Lb Simmons Aircraft Engine Mechanic, Rizwana Wright RTR, ENVELOPE SEALER OPERATOR Monitor, Saundra Tavarez RN RN, Mariam Chandra Procedures Performed Art Access - R femoral artery* Left Heart Cath Coronaries, Bypass Grafts [id number] LHCCORCABG 08328 Initial Mod Sed Same Phys/QHP Gr5y 574996 65283 Mod Sed Same Phys/QHP Ea 435018 JONI Revasc Graft Single PDA C9604 SVGREVSING JONI Revasc Graft Single OM C9604 SVGREVSING Hemostasis w/ Mynx Indication CHF Current Status: , Dyspnea, Positive stress test Risk Factors HypercholesterolemiaPhysical Activity, Coronary Artery DiseaseHypertension Previous Procedures/Diagnoses Previous CABG Procedure Narrative The Right Groin^ was infiltrated with 1% Lidocaine subcutaneous anesthesia. A PINNACLE 6FR Sheath #[id number] sheath was inserted into the RFA^. Coronary angiography was performed using coronary diagnostic catheters. The right coronary system was accessed and visualized with a JR4 catheter. The left coronary system was accessed and visualized with a JL4 catheter. A hematoma occurred. [facility] [address] [place] [address] INVASIVE PROCEDURE REPORT Name: LORNA TREJO Room #: REG [facility]#: [id number] Admission: 02/15/21 Attend Phys: Lb Simmons MD Discharge: Date of : 33 Report #: [id number] Intraoperative Conscious Sedation Sedation start time: 1229 Case end Time: 1400 Fentanyl 50 mcg Versed 1 mg Fluoro Time: 21.20 minutes Dose: DAP 33533.40 cGycm2 2214 mGy Contrast Type and Amount: Visipaque 205 ml Coronary Angiography The patient's coronary anatomy is right dominant. Diagnostic Cath Left Main There are total occlusions of the ostial LAD and left circumflex arteries. LAD There is a patent SHEPPARD graft with an end-to-side anastomosis to the mid LAD. After the anastomosis, there is both antegrade and retrograde flow in the [place] LAD system. Diagonal 1 There is a patent sequential SVG to D1 and OM1. OM1 Just after the SVG anastomosis to OM1, there is a severe occlusion in the antegrade branch, 80%. Right Coronary The RCA is totally occluded in the midsegment. R PDA There is a patent SVG to the PDA. After the anastomosis, there is a severe occlusion in the proximal PDA, 80%. There is retrograde filling of the RPL branch. Left Ventriculography Left Ventriculography was not performed. An LVEDP was measured and there is no gradient across the outflow tract. IVUS A Guide Catheter was used to engage the LAUNCHER 6FR MP1 #401016 ostium. A Luge Wire .014 x 182CM #[id number] was used. IVUS Findings TREK RX 2.25 X 8 Hemodynamics The aortic pressure is 130/75 mmHg with a mean of 96 mmHg. The left ventricular pressure is 111/2 mmHg with a mean of mmHg. The left ventricular end diastolic pressure is 18 mmHg. PCI Technique Lesion Percutaneous coronary intervention was performed on the Proximal PDA stenosis through the SVG. The lesion stenosis prior to intervention was 80% with BRIANNA 3 flow. A LAUNCHER 6FR MP1 #[id number] Guide Catheter [facility] [address] [place] [address] INVASIVE PROCEDURE REPORT Name: LORNA TREJO Room #: REG [facility]#: [id number] Admission: 02/15/21 Attend Phys: Lb Simmons MD Discharge: Date of : 33 Report #: [id number] was used to engage the ostium. A Luge Wire .014 x 182CM #[id number] Interventional Guidewire was used to cross the lesion. BALLOON DILATION A Balloon catheter Euphora RX 2.25 x 12 #[id number] was inserted and inflated up to 6.00atm for 13seconds. STENT DEPLOYMENT A stent RESOLUTE AMAIRANI RX 2.25 X 12 #[id number] was inserted and inflated up to 10.00atm for 24seconds. POST STENT DEPLOYMENT BALLOON DILATION A Balloon catheter Euphora RX 2.25 x 12 #[id number] was inserted and inflated up to 14.00atm for 19seconds. Final angiography reveals 0 % stenosis with BRIANNA 3 flow. COMMENTS Prior to the onset of PCI, placement of the 6 Bangladeshi guide catheter up into the aorta was difficult due to excessive tortuosity in the iliac arterial system. A long 6 Bangladeshi sheath was placed up into the abdominal aorta bypassing the tortuosity of the iliac arteries. PCI Technique Lesion A LAUNCHER 6FR MP1 #[id number] Guide Catheter was used to engage the ostium. A Luge Wire .014 x 182CM #005010 Interventional Guidewire was used to cross the lesion. BALLOON DILATION A Balloon catheter TREK RX 2.25 X 8 was inserted and inflated up to 12atm for 10seconds. Additional Inflation: 8atm for 8seconds. STENT DEPLOYMENT A stent RESOLUTE AMAIRANI 2.5 X 8 #[id number] was inserted and inflated up to 8atm for 13seconds. Additional Inflation: 14atm for 11seconds. PCI Technique Lesion 2 Percutaneous coronary intervention was performed on the OM1 stenosis, through the SVG. The lesion stenosis prior to intervention was 80% with BRIANNA 3 flow. Balloon Dilation A Balloon catheter TREK RX 2.25 X 8 was inserted and inflated up to 12.00atm for 10seconds. [facility] [place] [address] INVASIVE PROCEDURE REPORT Name: LORNA TREJO Room #: [facility]..#: [id number] Admission: 02/15/21 Attend Phys: Lb Simmons MD Discharge: Date of : 31 Report #: [id number] Stent Deployment A drug-eluting stent RESOLUTE AMAIRANI 2.5 X 8 #[id number] was inserted and inflated up to 12.00atm for 10seconds. Additional Inflation: 14.00atm for 11seconds. Final angiography reveals % stenosis with BRIANNA 3 flow. Conclusion 1. PCI performed with placement of a drug-eluting stent into the proximal PDA segment, performed thru the saphenous vein graft. 2. PCI performed with placement of a drug-eluting stent into the first obtuse marginal artery, performed thru the saphenous vein graft. 3. There is a patent SHEPPARD graft to the LAD, with both retrograde and antegrade flow in the [place] LAD system. 4. There is a patent sequential SVG to the first diagonal artery and OM1. 5. Recommend antiplatelet therapy and aggressive risk factor management. <ELECTRONICALLY SIGNED> By: Lb Simmons MD 02/15/21 1527 1527 1527 Lb Simmons MD /INF
[2021-02-15] MEDS ORDERED: CLOPIDOGREL75 MG PO (16:30)
[2021-02-15] MEDS ORDERED: XARELTO15 MG PO (16:30)
[2021-02-15 19:39] VITALS: BP 99/69
[2021-02-15 23:17] VITALS: BP 121/82
[2021-02-16 05:42] VITALS: BP 123/80
[2021-02-16 06:17] LABS: HEMATOCRIT 33.5 % (42.0-52.0); HEMOGLOBIN 11.4 gm/dL (14.0-18.0); MCH 32.1 pg (26.0-34.0); MCV 94.5 fL (80.0-100.0); RBC 3.54 mil/uL (4.50-6.00); RDW 13.9 % (10.5-14.5); WBC 6.5 thou/uL (4.0-11.0)
[2021-02-16 06:42] LABS: ALBUMIN 3.1 g/dL (3.4-5.0); CALCIUM 8.5 mg/dL (8.5-10.1); CREATININE 1.1 mg/dL (0.7-1.3); POTASSIUM 4.4 mmol/L (3.5-5.1); TOTAL BILIRUBIN 0.8 mg/dL (0.2-1.0); TOTAL PROTEIN 6.3 g/dL (6.4-8.2)
[2021-02-16] MEDS ORDERED: XARELTO15 MG PO (07:52)
[2021-02-16] MEDS ORDERED: CLOPIDOGREL75 MG PO (07:52)
[2021-02-16 08:56] VITALS: BP 105/70
[2021-02-16 11:17] VITALS: BP 105/70
--- NOTE | 2021-02-16 11:41 | NUR ---
ASSESSMENT CHARTED. PT ALERT AND ORIENTED. VSS. DENIED HAVING PAIN OR DISCOMFORT. RIGHT GROIN INCISION C/D/I. NO HEMATOMA. ODERS GIVEN TO DISCHARGE PT TO HOME. DISCHARGE INSTRUCTIONS GIVEN TO PT. PT VERBERLISED UNDERSTNADING.
== END 2021-02-16 12:31 | disposition home or self-care (01) ==
LOC: CATH 09:28 → 2N 15:43
PROVIDERS: ADMIT Internal Medicine Cardiovascular Disease; ATTEND Internal Medicine Cardiovascular Disease
DX: I25.110 Atherosclerotic heart disease of native coronary artery with unstable angina pectoris (principal); I48.21 Permanent atrial fibrillation; I49.5 Sick sinus syndrome; I10 Essential (primary) hypertension; E78.5 Hyperlipidemia, unspecified; I35.0 Nonrheumatic aortic (valve) stenosis; Z79.82 Long term (current) use of aspirin; Z79.899 Other long term (current) drug therapy; Z23 Encounter for immunization

== ENCOUNTER → 2021-03-01 | Outpatient (CLI) | payer OTHER ==
[~2021-03-01] MED LIST changes: +CLOPIDOGREL75 MG PO; +DEMADEX20 MG; +ENTRESTO 24 MG1 EACH; +KLOR-CON M2020 MEQ; +OSTERA TABLET1 EAC1; +TOPROL XL50 MG; +XARELTO15 MG PO
== END ==
LOC: SJCVC 13:01
PROVIDERS: ATTEND Internal Medicine Cardiovascular Disease
DX: R94.31 Abnormal electrocardiogram [ECG] [EKG] (principal); I49.1 Atrial premature depolarization; I25.10 Atherosclerotic heart disease of native coronary artery without angina pectoris; I10 Essential (primary) hypertension; I35.0 Nonrheumatic aortic (valve) stenosis; R42 Dizziness and giddiness; I48.0 Paroxysmal atrial fibrillation; E78.5 Hyperlipidemia, unspecified; R60.9 Edema, unspecified; Z95.0 Presence of cardiac pacemaker; Z79.899 Other long term (current) drug therapy; Z72.89 Other problems related to lifestyle; Z87.891 Personal history of nicotine dependence; Z95.1 Presence of aortocoronary bypass graft; Z95.818 Presence of other cardiac implants and grafts; Z95.5 Presence of coronary angioplasty implant and graft

== ENCOUNTER → 2021-04-03 | Outpatient (CLI) | payer OTHER | LOC: SJCVC 11:04 | PROVIDERS: ATTEND Internal Medicine Cardiovascular Disease | DX: I25.10 Atherosclerotic heart disease of native coronary artery without angina pectoris (principal) ==

== ENCOUNTER → 2021-06-20 | Outpatient (CLI) | payer OTHER | LOC: SJCVC 14:23 | PROVIDERS: ATTEND Internal Medicine Cardiovascular Disease | DX: R94.31 Abnormal electrocardiogram [ECG] [EKG] (principal); I48.0 Paroxysmal atrial fibrillation; I25.10 Atherosclerotic heart disease of native coronary artery without angina pectoris; E78.5 Hyperlipidemia, unspecified; I10 Essential (primary) hypertension; Z95.1 Presence of aortocoronary bypass graft; Z95.0 Presence of cardiac pacemaker; Z82.49 Family history of ischemic heart disease and other diseases of the circulatory system; Z72.89 Other problems related to lifestyle; Z87.891 Personal history of nicotine dependence; Z79.82 Long term (current) use of aspirin; Z79.899 Other long term (current) drug therapy ==